=== PATIENT | female | born 1975 | race Caucasian/White ===

== ENCOUNTER 2016-10-13 09:55 | Emergency (ER) | payer OTHER ==
[2016-10-13 11:19] VITALS: BP 143/99; PULSE 64; RESP 16; TEMP 98.6; O2SAT 92
[2016-10-13] MEDS ORDERED: oxyCODONE IR 5 MG TAB PO ONE (11:42)
--- NOTE | 2016-10-13 11:49 | UCPHY ---
[id number] 4d 10/13/16 11:04 HPI/ROS: CHIEF COMPLAINT: Right ankle pain HISTORY OF PRESENT ILLNESS: 41-year-old female presents complaining of right ankle pain. Patient missed a step yesterday walking down her stairs and twisted her ankle. She complains of lateral ankle pain. She denies other injuries, no head strike. Patient reports previous severe ankle sprain 3 years for this same ankle. She has been unable to bear weight since the accident. ( Carmen Jackson) Physical Exam: General appearance: alert no distress Right ankle: There is swelling and tenderness over the lateral ankle. No tenderness over medial or lateral malleolus. TTP to ATFL and CFL. There is no tenderness over the achilles tendon. The foot is non-tender without swelling. No TTP over 5th metatarsal. Neurologic exam: The patient has normal sensation and motor function distal to the injury. Vascular exam: Normal pulses and capillary refill in the foot (Carmen Jackson) Constitutional: Initial Vital Signs Temperature (C) 37 C 10/13/16 11:02 Heart Rate 64 10/13/16 11:02 Respiratory Rate 16 10/13/16 11:02 Blood Pressure 143/99 H 10/13/16 11:02 O2 Sat (%) 92 10/13/16 11:02 O2 Delivery Mode Room Air Allergies/Adverse Reactions: BENADRYL TOPICAL Allergy (Uncoded 10/13/16 11:01) Home Medications: Medication Instructions Recorded Ambien 12/30/15 Zoloft 100mg (RX) 12/30/15 Jenna Allergy 10/13/16 Losartan Potassium 10/13/16 Olanzapine 10/13/16 Oxycodone HCl [Roxicodone] 5 mg PO Q6 PRN #15 tablet 10/13/16 MDM/Departure - MDM Diagnostics: Right ankle x-ray independently reviewed by me- Lateral soft tissue swelling, no fracture (Carmen Jackson) Medications Given: Discontinued Medications Oxycodone HCl (Oxycodone Ir) 5 mg PO EDNOW ONE Stop: 10/13/16 11:43 Last Admin: 10/13/16 12:01 Dose: 5 mg ED Course/Re-evaluation: Urgent Care PA supervision Physician documentation: The patient was evaluated and managed by the physician transportation assistant. My co- signature indicates that I have reviewed this chart and I agree with the findings and plan of care as documented. I am is secondary supervising physician. (Nicolas Pina) - Depart Disposition: Home, Routine, Self-Care Clinical Impression: Ankle sprain Qualifiers: Encounter type: initial encounter Involved ligament of ankle: calcaneofibular ligament Laterality: right Qualifier Code: (S93.411A) Sprain of calcaneofibular ligament of right ankle, initial encounter Condition: Fair Instructions: Oxycodone, Rapid Release (By mouth), Ankle Sprain (ED) Additional Instructions: Rest, ice, elevate, take 600mg of ibuprofen every 8 hours with food for 3-5 days as needed for pain and swelling. Take 1 oxycodone every 6 hours as needed for severe pain. Follow up with orthopedist at 1st available appointment. Use crutches in do not bear weight until you follow up. Return to the emergency department for any numbness, tingling, discoloration of you limb or other concerns. Stand Alone Forms: Work Excuse Prescriptions: Oxycodone HCl [Roxicodone] 5 mg PO Q6 PRN #15 tablet PRN Reason: Pain, Breakthrough Referrals: Joaquin Crow MD [Medical Doctor] - As per Instructions (Orthopedist on-call) - PQRS PQRS Measurement: na (Carmen Jackson)
--- NOTE | 2016-10-13 15:54 | DX ---
Right ankle, 3 views History: Trauma, pain. Findings: Lateral soft tissue swelling. Tiny nondisplaced fracture from the distal tip of the fibula. No widening of the ankle mortise. The malleolus appears intact. Talar dome appears intact. Impression: Lateral soft tissue swelling with acute fracture of the distal tip of the fibula. Findings and recommendations discussed with Emergency Department physician, DMAARIS Amos, at 15 50 hours today. Final report concurs with initial preliminary interpretation.
== END 2016-10-13 12:22 | disposition home or self-care (01) ==
LOC: CED 09:55
DX: S93.411A Sprain of calcaneofibular ligament of right ankle, initial encounter (principal); W10.9XXA Fall (on) (from) unspecified stairs and steps, initial encounter
CPT/HCPCS: 73610-PO; 99214-PO; G0463-PO; L4386

== ENCOUNTER → 2018-07-26 | Outpatient (CLI) | payer OTHER | LOC: BMCIMAGING 11:21 | PROVIDERS: ATTEND Nurse Practitioner | DX: J40 Bronchitis, not specified as acute or chronic (principal); F17.210 Nicotine dependence, cigarettes, uncomplicated ==